=== PATIENT | male | born 1955 | race Caucasian/White ===

== ENCOUNTER 2024-12-03 19:28 | Emergency (ER) | payer MEDICARE ==
[~2024-12-03] VITALS: Ht 172.7 cm; Wt 77.4 kg
[2024-12-03 20:40] LABS: BASOPHILS 0.1 % (0.2-1.2); EOSINOPHILS 0 % (0.8-7.0); LYMPHOCYTES 3.4 % (21.8-53.1); MCH 26.7 PG (25.7-32.2); MCHC 33.0 g/dL (32.3-36.5); MCV 80.7 fL (79.0-92.2); MONOCYTES 8.1 % (5.3-12.2); NEUTROPHILS 87.7 % (34.0-67.9); RBC 4.35 M/uL (4.63-6.08)
[2024-12-03] MEDS ORDERED: LACTATED RINGER'S 1,000 ML IV ONE (21:00)
[2024-12-03 21:09] LABS: ALT (SGPT) 24.0 U/L (14-59); AST (SGOT) 15.0 U/L (15-37); GLOMERULAR FILTRATION RATE,EST 67.0 mL/min (>60); PROTEIN, TOTAL 7.1 g/dL (6.4-8.2); UREA NITROGEN 23.0 mg/dL (7-18)
[2024-12-03 21:30] LABS: CORONAVIRUS COVID-19 AG NEGATIVE (NEGATIVE)
--- OUTSIDE RECORDS SUMMARY | 2024-12-03 22:09 | XMS ---
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 - 2 Visits in 30 Days CARE PROVIDERS There are no care providers on record at this time. Esdras has no Care Guidelines for this patient. EMarta VISIT COUNT (12 MO.) 1 ORIANA [facility] TOTAL 2 NOTE: Visits indicate total known visits. ED/C VISIT TRACKING (12 MO.) 12/03/2024 19:29 [facility]IANA [facility] [place] TYPE: Emergency COMPLAINT: - WEAKNESS, SWEATING 11/18/2024 01:40 [facility] ID TYPE: Emergency COMPLAINT: - Nausea, vomitting DIAGNOSES: - Disorientation, unspecified - Elevated C-reactive protein (CRP) - Nausea with vomiting, unspecified - Nausea, vomitting - Weakness - Generalized INPATIENT VISIT TRACKING (12 MO.) No inpatient visits to display in this time frame [email or web address]
[2024-12-03 22:55] LABS: BLOOD/HGB, URINE TRACE-I (Negative); KETONE, URINE TRACE (Negative); LEUK ESTERASE, URINE NEGATIVE (negative); NITRITE, URINE NEGATIVE (negative)
[2024-12-03 23:01] LABS: EPITHELIAL CELLS, URINE SQUAMOUS 1+ /lpf (0-1+)
[2024-12-03 23:02] LABS: BACTERIA, URINE RARE /hpf (negative); CASTS, URINE GRANULAR 1+ \\lpf; CRYSTALS, URINE NONE SEEN (0-1+); REFLEX CULTURE, URINE No (No)
[2024-12-04] MEDS ORDERED: ATROPINE SULFATE 1 MG/10 ML SYR IV SCH (02:00)
[2024-12-04] MEDS ORDERED: LACTATED RINGER'S 1,000 ML IV SCH (03:00)
[2024-12-04 04:48] VITALS: BP 98/64
--- NOTE | 2024-12-04 12:05 | EKG ---
[facility] [address] [place] [address] Signed Sinus bradycardia Minimal voltage criteria for LVH, may be normal variant ( R in aVL ) Borderline ECG When compared with ECG of 03-DEC-2024 20:41, (Unconfirmed) No significant change was found Confirmed by Ward Roberson DO ([id number]) on 12/04/2024 12:05:15 PM Electronically Signed By: WARD ROBERSON DO 12/04/24 1205 PATIENT NAME: JOAQUIN PETERSON DRAKE Electrocardiogram DATE OF : 51 PHYSICIAN: WARD ROBERSON DO REPORT #: [id number] REPORT IS CONFIDENTIAL AND NOT TO BE RELEASED WITHOUT AUTHORIZATION
--- NOTE | 2024-12-04 12:05 | EKG ---
[facility] [address] [facility] [address] [place] [address] Signed Normal sinus rhythm Nonspecific ST abnormality Abnormal ECG No previous ECGs available Confirmed by Ward Roberson DO ([id number]) on 12/04/2024 12:05:08 PM Electronically Signed By: WARD ROBERSON DO 12/04/24 1205 PATIENT NAME: NICHOLASJOAQUIN DRAKE Electrocardiogram DATE OF : 51 PHYSICIAN: WARD ROBERSON DO REPORT #: [id number] REPORT IS CONFIDENTIAL AND NOT TO BE RELEASED WITHOUT AUTHORIZATION
== END 2024-12-04 03:52 | disposition short-term general hospital (02) ==
LOC: ED 19:28
PROVIDERS: Internal Medicine
DX: R00.1 Bradycardia, unspecified (principal); R61 Generalized hyperhidrosis
CPT/HCPCS: 36415; 71045; 80053; 81001; 83735; 83880; 84443; 84484; 85025; 87040; 93005; 93010; 96361; 96374; 99285-25; J0461; J7121